=== PATIENT | male | born 1995 | race African-American/Black ===

== ENCOUNTER 2020-08-24 21:06 | Emergency (ER) | payer SELFPAY ==
[~2020-08-24] VITALS: Ht 182.9 cm; Wt 91.0 kg
[2020-08-24 21:09] VITALS: BP 167/102
== END 2020-08-25 01:04 | disposition left against medical advice (07) ==
LOC: ER 21:06
DX: Z53.21 Procedure and treatment not carried out due to patient leaving prior to being seen by health care provider (principal)
CPT/HCPCS: 93005

== ENCOUNTER 2021-01-16 13:26 | Emergency (ER) | payer MEDICAID ==
[~2021-01-16] VITALS: Ht 177.8 cm; Wt 107.0 kg
[2021-01-16 13:32] VITALS: BP 149/76
[2021-01-16] MEDS ORDERED: IBUPROFEN 600MG TABLET PO ONE (14:00)
[2021-01-16] MEDS ORDERED: ACETAMINOPHEN 325MG TABLET PO ONE (14:00)
[2021-01-16] MEDS ORDERED: TOPUD MT (16:39)
[2021-01-16] MEDS ORDERED: TETANUS, DIPHTHERIA, PERTUSSIS VAC/PF 0.5ML (>7YR OLD) IM ONE (16:45)
== END 2021-01-16 16:50 | disposition home or self-care (01) ==
LOC: ER 13:26
DX: S60.455A Superficial foreign body of left ring finger, initial encounter (principal); X58.XXXA Exposure to other specified factors, initial encounter; Y93.89 Activity, other specified; Y92.89 Other specified places as the place of occurrence of the external cause; Y99.8 Other external cause status
CPT/HCPCS: 99283

== ENCOUNTER 2021-03-06 14:35 | Emergency (ER) | payer MEDICAID ==
[~2021-03-06] VITALS: Ht 180.3 cm; Wt 109.0 kg
[~2021-03-06 14:35] MED LIST: TOPUD MT
[2021-03-06 14:42] VITALS: BP 149/96
[2021-03-06 15:51] LABS: CLARITY URINE CLEAR (CLEAR); COLOR URINE YELLOW (YELLOW); KETONES URINE 1+ (NEGATIVE); LEUKOCYTE ESTERASE URINE NEGATIVE (NEGATIVE); NITRITE URINE NEGATIVE (NEGATIVE); OCCULT BLOOD URINE NEGATIVE (NEGATIVE); PROTEIN URINE NEGATIVE (NEGATIVE); SPECIFIC GRAVITY URINE 1.034 (1.005-1.030); UROBILINOGEN URINE 0.2 E.U./dL (0.2-1.0)
[2021-03-06] MEDS ORDERED: CLOT15CR TP (15:57)
== END 2021-03-06 16:25 | disposition home or self-care (01) ==
LOC: ER 14:35
DX: B35.6 Tinea cruris (principal); Z11.3 Encounter for screening for infections with a predominantly sexual mode of transmission; Z86.59 Personal history of other mental and behavioral disorders
CPT/HCPCS: 81003; 87491; 87591; 99283

== ENCOUNTER 2022-02-12 14:01 | Emergency (ER) | payer MEDICAID ==
[~2022-02-12] VITALS: Ht 172.7 cm; Wt 75.0 kg
[~2022-02-12 14:01] MED LIST changes: +CLOT15CR TP
[2022-02-12 14:14] VITALS: BP 150/81
== END 2022-02-12 18:24 | disposition home or self-care (01) ==
LOC: ER 14:01
DX: H92.02 Otalgia, left ear (principal)
CPT/HCPCS: 69210; 99282

== ENCOUNTER 2022-04-14 08:49 | Emergency (ER) | payer MEDICAID ==
[~2022-04-14] VITALS: Ht 182.9 cm; Wt 109.0 kg
[2022-04-14] MEDS ORDERED: BACITRACIN ZINC OINT UDPKT TOP ONE (09:45)
[2022-04-14] MEDS ORDERED: IBUPROFEN 600MG TABLET PO ONE (09:45)
[2022-04-14] MEDS ORDERED: TETANUS, DIPHTHERIA, PERTUSSIS VAC/PF 0.5ML (>10YR OLD) IM ONE (09:45)
[2022-04-14] MEDS ORDERED: ACETAMINOPHEN 325MG TABLET PO ONE (09:45)
[2022-04-14 09:52] VITALS: BP 163/92
[2022-04-14] MEDS ORDERED: LIDOCAINE HCL/PF 1% 10 MG/ML 5ML VIAL INFIL ONE (10:30)
[2022-04-14] MEDS ORDERED: OLANZAPINE 10 MG/VIAL IM STA (12:15)
== END 2022-04-14 12:32 | disposition left against medical advice (07) ==
LOC: ER 08:49
DX: S61.216A Laceration without foreign body of right little finger without damage to nail, initial encounter (principal); R45.1 Restlessness and agitation; F20.9 Schizophrenia, unspecified; W25.XXXA Contact with sharp glass, initial encounter; Y93.89 Activity, other specified; Y92.9 Unspecified place or not applicable
CPT/HCPCS: 12001; 73130; 90471; 90715; 99283; J3490

== ENCOUNTER 2024-05-17 11:34 | Emergency (ER) | payer MEDICAID ==
[~2024-05-17] VITALS: Ht 172.7 cm; Wt 82.0 kg
[2024-05-17 11:39] VITALS: O2SAT 100
[2024-05-17] MEDS ORDERED: OLANZAPINE 10MG TABLET PO SCH (12:00)
[2024-05-17] MEDS: LORAZEPAM 2MG/ML INJ IM ONE (12:49)
[2024-05-17] MEDS: DIPHENHYDRAMINE 50MG/ML VIAL IM ONE (12:50)
[2024-05-17] MEDS: HALOPERIDOL LACTATE 5MG/ML VIAL IM ONE (12:50)
[2024-05-17 13:15] LABS: CLARITY URINE CLEAR (CLEAR); COLOR URINE DARK YELLOW (YELLOW); GLUCOSE URINE NEGATIVE (NEGATIVE); KETONES URINE 3+ (NEGATIVE); LEUKOCYTE ESTERASE URINE NEGATIVE (NEGATIVE); NITRITE URINE NEGATIVE (NEGATIVE); OCCULT BLOOD URINE NEGATIVE (NEGATIVE); PH URINE 5.5 (4.5-8.0); PROTEIN URINE 2+ (NEGATIVE); SPECIFIC GRAVITY URINE 1.034 (1.005-1.030); UROBILINOGEN URINE 0.2 E.U./dL (0.2-1.0)
[2024-05-17 13:28] LABS: BACTERIA URINE 2+; RBC URINE 0-2 /hpf (0-2); SQUAMOUS EPITHELIAL CELL URINE NONE SEEN /lpf (RARE/1+); YEAST URINE NONE SEEN
[2024-05-17 14:08] LABS: *AMPHETAMINES SCREEN URINE NEGATIVE (NEGATIVE); *BARBITURATES SCREEN URINE NEGATIVE (NEGATIVE); *BENZODIAZEPINES SCREEN URINE NEGATIVE (NEGATIVE); *COCAINE SCREEN URINE NEGATIVE (NEGATIVE)
[2024-05-17 14:09] LABS: CANNABINOID URINE SCREEN PRESUMPTIVE POSITIVE (NEGATIVE); ECSTASY MDMA SCREEN URINE NEGATIVE (NEGATIVE); METHADONE URINE SCREEN NEGATIVE (NEGATIVE); OPIATES URINE SCREEN NEGATIVE (NEGATIVE); PHENCYCLIDINE URINE SCREEN NEGATIVE (NEGATIVE)
[2024-05-17 15:15] LABS: HEMATOCRIT. 41.7 % (42.0-52.0); HEMOGLOBIN. 13.8 g/dL (14.0-18.0); MEAN CORPUSCULAR HEMOGLOBIN 28.8 pg (28.0-32.0); MEAN CORPUSCULAR HGB CONC 32.9 g/dL (31.0-37.0); MEAN CORPUSCULAR VOLUME 87.5 fL (80.0-94.0); MEAN PLATELET VOLUME 9.3 fl (7.4-10.4); PLATELET 197 x1000/uL (130-400); RED BLOOD CELL COUNT 4.77 mill/uL (4.7-6.1); RED CELL DISTRIBUTION WIDTH 14.4 % (11.6-14.6); WHITE BLOOD COUNT 5.4 x1000/uL (4.5-11.0)
[2024-05-17 15:18] LABS: DIFFERENTIAL COMMENT 1
[2024-05-17 15:24] LABS: CHLORIDE 99 mEq/L (98-107); SODIUM 134 mEq/L (136-145)
[2024-05-17 15:25] LABS: CALCIUM 10.1 mg/dL (8.7-10.4); CARBON DIOXIDE 24 mEq/L (21-32)
[2024-05-17 15:30] LABS: CREATININE 1.2 mg/dL (0.6-1.3); GLUCOSE 78 mg/dL (70-105); UREA NITROGEN BLOOD 21 mg/dL (9-23)
[2024-05-17 15:32] LABS: ACETAMINOPHEN < 2 ug/mL (10-30)
[2024-05-17 15:41] LABS: ETHANOL BLOOD < 10 mg/dL (<10)
[2024-05-17 16:34] LABS: PLATELET ESTIMATE NORMAL
[2024-05-17] MEDS: TRAZODONE HCL 50MG TABLET PO SCH (21:00)
[2024-05-18] MEDS: HALOPERIDOL LACTATE 5MG/ML VIAL IM ONE (17:45)
[2024-05-18] MEDS: LORAZEPAM 2MG/ML INJ IM ONE (17:45)
[2024-05-18] MEDS: DIPHENHYDRAMINE 50MG/ML VIAL IM ONE (17:45)
[2024-05-19] MEDS: QUETIAPINE FUMARATE 25MG TABLET PO SCH (22:59)
[2024-05-20] MEDS: QUETIAPINE FUMARATE 50MG TABLET PO SCH (12:47)
[2024-05-20] MEDS: HALOPERIDOL LACTATE 5MG/ML VIAL IM STA (20:46)
[2024-05-20] MEDS: LORAZEPAM 2MG/ML INJ IM STA (20:46)
[2024-05-20] MEDS: DIPHENHYDRAMINE 50MG/ML VIAL IM STA (20:46)
[2024-05-21 05:00] VITALS: BP 117/69; PULSE 74; RESP 16; TEMP 36.55848; O2SAT 99
== END 2024-05-21 09:08 | disposition home or self-care (01) ==
LOC: ER 11:34
DX: F23 Brief psychotic disorder (principal); F12.10 Cannabis abuse, uncomplicated; Z79.899 Other long term (current) drug therapy; Z20.822 Contact with and (suspected) exposure to COVID-19
CPT/HCPCS: 80048; 81003; 80307; 85025; 36415; 96372 ×3; 99285; 87426; G0480; J1200 ×3; J1630 ×3; J2060 ×3; Z7610; 80305; 80320; 80329